=== PATIENT | male | born 1935 | race Caucasian/White ===

== ENCOUNTER 2016-10-07 12:37 | Emergency (ER) | payer OTHER, BC ==
[~2016-10-07] VITALS: Ht 170.2 cm; Wt 87.2 kg
[~2016-10-07 12:37] MED LIST: Ascorbic Acid,Ester- PO; CARDIZEM CD300 MG PO; CENTRUM SILVER1 EAC1 PO; COUMADIN1 MG PO; Cardizem CD,Cartia X PO; Coumadin Protocol PO; DIOVAN160 MG PO; DIOVAN80 MG PO; Dulcolax PO; FLOMAX0.4 MG PO; FLONASE16 G1 BOTH NARES; Feosol PO; Flonase BOTH NARES; Folvite PO; HYDROCHLOROTH12.5 M3 PO; Hydrodiuril,Oretic,E PO; IRON325 M1 PO; LIVALO4 MG PO; LO-DOSE ASPIRIN81 M1 PO; Lopressor PO; METOPROLOL TART25 MG PO; MONTELUKAST SOD10 MG PO; NORCO 5/3251 TABLET PO; OXYCODONE HCL5 MG PO; Pepcid PO; Pravachol PO; Senokot S,Pericolace PO; TYLENOL ARTHRI650 MG PO; TYLENOL REGULA325 MG PO; TYLENOL WITH C1 EACH PO; Theragran PO; Vicodin,Norco 5/325 PO; ZANTAC150 MG PO; ZOFRAN ODT4 MG PO; [UNRECOGNIZED DRUG - REMARK] PO
[2016-10-07 13:24] LABS: HEMATOCRIT 37.1 % (38.0-50.0); MCH 29.5 PG (29.0-34.0); MCHC 32.1 G/DL (30.0-36.0); MCV 92.1 FL (86-99); MEAN PLAT.VOLUME 11.5 uM^3 (9.0-12.4); PLATELET COUNT 205 K/uL (156-360); RBC DIS.WIDTH-CV 14.2 % (11.8-14.6); RBC DIS.WIDTH-SD 48.2 % (39-53); RED BLOOD COUNT 4.03 M/uL (4.00-5.50); WHITE BLOOD COUNT 6.8 K/uL (4.1-10.2)
[2016-10-07 13:34] LABS: CHLORIDE 111 mEq/L (99-109); POTASSIUM 4.7 mEq/L (3.7-5.4); SODIUM 145 mEq/L (136-147)
[2016-10-07 13:36] LABS: GLUCOSE 161 mg/dL (70-99)
[2016-10-07 13:37] LABS: ANION GAP 10 MEQ/L (2-14)
[2016-10-07 13:40] LABS: GFR ESTIMATE (CALCULATED) 52 mL/min/
[2016-10-07 13:41] LABS: UREA NITROGEN (BUN) 49 mg/dL (9-23)
[2016-10-07 13:44] LABS: TROP-I INTERPRETATION NEGATIVE; TROPONIN-I < 0.01 ng/mL (0.0-0.30)
[2016-10-07] MEDS ORDERED: ASPIR 8181 M1 PO (15:26)
[2016-10-07 16:29] LABS: TROP-I INTERPRETATION NEGATIVE; TROPONIN-I < 0.01 ng/mL (0.0-0.30)
[2016-10-07] MEDS ORDERED: PROVENTIL HFA6.7 GM IH (17:50)
[2016-10-07] MEDS ORDERED: ZYRTEC10 M2 PO (17:50)
[2016-10-07 18:05] VITALS: BP 148/57
== END 2016-10-07 18:11 | disposition home or self-care (01) ==
LOC: EME 12:37
PROVIDERS: Nurse Practitioner Family
DX: J20.9 Acute bronchitis, unspecified (principal); J30.2 Other seasonal allergic rhinitis; R07.89 Other chest pain; F43.9 Reaction to severe stress, unspecified; R42 Dizziness and giddiness; I10 Essential (primary) hypertension; Z95.1 Presence of aortocoronary bypass graft; Z79.82 Long term (current) use of aspirin
CPT/HCPCS: 71020; 80048; 84484; 85027; 93005; 94640; 99281; 99284

== ENCOUNTER 2016-10-28 11:28 | Day surgery (SDC) | payer OTHER, BC ==
[~2016-10-28] VITALS: Ht 170.2 cm; Wt 89.2 kg
[~2016-10-28 11:28] MED LIST changes: +ASPIR 8181 M1 PO; +PRAZOSIN HCL1 MG PO; +PROVENTIL HFA6.7 GM IH; +ZYRTEC10 M2 PO
[2016-10-28 20:30] VITALS: BP 167/81
[2016-10-28 23:55] VITALS: BP 171/94
[2016-10-29 04:05] VITALS: BP 146/77
[2016-10-29 07:46] VITALS: BP 170/91
[2016-10-29] MEDS ORDERED: LOPRESSOR25 MG PO (14:35)
== END 2016-10-29 15:51 | disposition home or self-care (01) ==
LOC: CATH 11:28 → 4EAST 13:40 → 2SOUTH 13:40 → 4EAST 20:08
DX: I44.2 Atrioventricular block, complete (principal); I45.10 Unspecified right bundle-branch block; I25.10 Atherosclerotic heart disease of native coronary artery without angina pectoris; I25.2 Old myocardial infarction; E78.5 Hyperlipidemia, unspecified; K21.9 Gastro-esophageal reflux disease without esophagitis; G47.33 Obstructive sleep apnea (adult) (pediatric); Z95.1 Presence of aortocoronary bypass graft; Z82.49 Family history of ischemic heart disease and other diseases of the circulatory system; Z88.0 Allergy status to penicillin; Z79.82 Long term (current) use of aspirin
CPT/HCPCS: 71010; 93005; 99202; C1785; C1892; C1894; C1898; G0378; J0360; J0690; J1200; J2250; J2405; J3010; S0020

== ENCOUNTER 2017-09-11 08:30 | Inpatient (IN) | payer OTHER, BC ==
[~2017-09-11] VITALS: Ht 170.2 cm; Wt 86.3 kg
[2017-09-11 02:03] VITALS: BP 132/68
[~2017-09-11 08:30] MED LIST changes: +LOPRESSOR25 MG PO; +MINIPRESS2 MG PO; -PRAZOSIN HCL1 MG PO
[2017-09-11 09:16] LABS: BASOPHIL (%) 0.1 % (0-1); EOSINOPHIL (%) 2.4 % (0-5); EOSINOPHIL COUNT 0.2 K/uL (0-0.3); HEMATOCRIT 34.2 % (38.0-50.0); HEMOGLOBIN 11.3 G/DL (12.5-16.6); IMMATURE GRANULOCYTE (%) 0.4 % (0.0-0.7); LYMPHOCYTE COUNT 0.7 K/uL (1.0-2.8); MCH 30.5 PG (29.0-34.0); MCV 92.2 FL (86-99); MONOCYTE (%) 8.2 % (3-12); MONOCYTE COUNT 0.6 K/uL (0-0.8); NEUTROPHIL (%) 79.9 % (45-76); NEUTROPHIL COUNT 5.8 K/uL (1.8-6.4); PLATELET COUNT 186 K/uL (156-360); RBC DIS.WIDTH-CV 14.3 % (11.8-14.6); RBC DIS.WIDTH-SD 48.6 % (39-53); RED BLOOD COUNT 3.71 M/uL (4.00-5.50); WHITE BLOOD COUNT 7.2 K/uL (4.1-10.2)
[2017-09-11 09:22] LABS: INTER. NORMALIZED RATIO 1.1
[2017-09-11 09:25] LABS: PTT 31.4 SEC (25-37)
[2017-09-11 09:46] LABS: CHLORIDE 112 MEQ/L (99-109); GFR ESTIMATE (CALCULATED) > 59 mL/min/ (58.99-99999); GLUCOSE 106 mg/dL (70-99); POTASSIUM 4.7 MEQ/L (3.7-5.4); SODIUM 141 MEQ/L (136-147); UREA NITROGEN (BUN) 22 mg/dL (9-23)
[2017-09-11 09:48] LABS: TROP-I INTERPRETATION NEGATIVE; TROPONIN-I 0.04 ng/mL (0.0-0.30)
[2017-09-11] MEDS ORDERED: CLARITIN-D 21 TABLET PO (10:47)
[2017-09-11 11:45] VITALS: BP 174/80
[2017-09-11 13:30] VITALS: BP 156/84
[2017-09-11 14:47] VITALS: BP 121/64
[2017-09-11 19:08] LABS: TROP-I INTERPRETATION NEGATIVE; TROPONIN-I 0.05 ng/mL (0.0-0.30)
[2017-09-11 20:35] VITALS: BP 132/68
[2017-09-11 22:30] VITALS: BP 143/75
[2017-09-12 03:00] VITALS: BP 125/65
[2017-09-12 05:36] LABS: MCHC 32.4 G/DL (30.0-36.0); MCV 89.7 FL (86-99); PLATELET COUNT 196 K/uL (156-360); RBC DIS.WIDTH-SD 45.6 % (39-53); RED BLOOD COUNT 3.79 M/uL (4.00-5.50); WHITE BLOOD COUNT 5.4 K/uL (4.1-10.2)
[2017-09-12 06:08] LABS: ALBUMIN 3.5 G/DL (3.2-4.8); ALKALINE PHOSPHATASE 59 IU/L (3-129); ALT (GPT) 7 IU/L (3-49); AST (GOT) 13 IU/L (2-34); CHLORIDE 105 MEQ/L (99-109); CREATININE 1.2 MG/DL (0.6-1.3); GFR ESTIMATE (CALCULATED) > 59 mL/min/ (58.99-99999); GLUCOSE 97 mg/dL (70-99); POTASSIUM 4.5 MEQ/L (3.7-5.4); SODIUM 140 MEQ/L (136-147); TOTAL BILIRUBIN 0.7 MG/DL (0.0-1.0); UREA NITROGEN (BUN) 26 mg/dL (9-23)
[2017-09-12 07:10] VITALS: BP 129/76
[2017-09-12 11:56] VITALS: BP 134/77
[2017-09-12 15:09] VITALS: BP 105/61
[2017-09-12 19:45] VITALS: BP 125/68; BP 151/67
[2017-09-12 23:50] VITALS: BP 112/67
[2017-09-13] VITALS (8 sets, daily range): BP systolic 76–151; BP diastolic 46–79
[2017-09-13 06:25] LABS: CHLORIDE 101 MEQ/L (99-109); CREATININE 1.4 MG/DL (0.6-1.3); GFR ESTIMATE (CALCULATED) 52 mL/min/ (58.99-99999); GLUCOSE 98 mg/dL (70-99); MAGNESIUM 1.8 mg/dl (1.3-2.7); POTASSIUM 4.1 MEQ/L (3.7-5.4); SODIUM 138 MEQ/L (136-147); UREA NITROGEN (BUN) 36 mg/dL (9-23)
[2017-09-14 04:51] VITALS: BP 131/75
[2017-09-14 05:45] LABS: BASOPHIL (%) 0.4 % (0-1); EOSINOPHIL (%) 4.6 % (0-5); EOSINOPHIL COUNT 0.3 K/uL (0-0.3); HEMATOCRIT 33.8 % (38.0-50.0); HEMOGLOBIN 11.2 G/DL (12.5-16.6); IMMATURE GRANULOCYTE (%) 0.1 % (0.0-0.7); LYMPHOCYTE (%) 13.8 % (15-42); MCH 29.8 PG (29.0-34.0); MCHC 33.1 G/DL (30.0-36.0); MCV 89.9 FL (86-99); MONOCYTE (%) 10.4 % (3-12); MONOCYTE COUNT 0.7 K/uL (0-0.8); NEUTROPHIL (%) 70.7 % (45-76); NEUTROPHIL COUNT 4.9 K/uL (1.8-6.4); PLATELET COUNT 190 K/uL (156-360); RBC DIS.WIDTH-CV 13.9 % (11.8-14.6); RBC DIS.WIDTH-SD 45.4 % (39-53); RED BLOOD COUNT 3.76 M/uL (4.00-5.50); WHITE BLOOD COUNT 6.9 K/uL (4.1-10.2)
[2017-09-14 06:04] LABS: CHLORIDE 104 MEQ/L (99-109); CREATININE 1.5 MG/DL (0.6-1.3); GFR ESTIMATE (CALCULATED) 48 mL/min/ (58.99-99999); GLUCOSE 95 mg/dL (70-99); POTASSIUM 4.5 MEQ/L (3.7-5.4); SODIUM 137 MEQ/L (136-147); UREA NITROGEN (BUN) 41 mg/dL (9-23)
[2017-09-14 08:07] VITALS: BP 102/68
[2017-09-14 11:18] VITALS: BP 118/72
[2017-09-14 14:40] VITALS: BP 122/62
[2017-09-14 20:42] VITALS: BP 146/70
[2017-09-15 00:05] VITALS: BP 136/66
[2017-09-15 05:44] VITALS: BP 106/65
[2017-09-15 05:55] LABS: CHLORIDE 104 MEQ/L (99-109); CREATININE 1.5 MG/DL (0.6-1.3); GFR ESTIMATE (CALCULATED) 48 mL/min/ (58.99-99999); GLUCOSE 97 mg/dL (70-99); POTASSIUM 4.5 MEQ/L (3.7-5.4); SODIUM 139 MEQ/L (136-147); UREA NITROGEN (BUN) 36 mg/dL (9-23)
[2017-09-15 08:09] VITALS: BP 132/81
[2017-09-15] MEDS ORDERED: FUROSEMIDE20 MG PO (10:51)
[2017-09-15] MEDS ORDERED: COZAAR25 MG PO (11:23)
== END 2017-09-15 13:13 | disposition home or self-care (01) | DRG 291 ==
LOC: EME 08:30 → EDOF 10:47 → 4EAST 10:47 → ENRESERV 10:49 → 4EAST 11:31
PROVIDERS: Emergency Medicine; Hospitalist; Internal Medicine; Physician Assistant Medical; Student in an Organized Health Care Education/Training Program
DX: I11.0 Hypertensive heart disease with heart failure (principal); I50.23 Acute on chronic systolic (congestive) heart failure; J96.01 Acute respiratory failure with hypoxia; I35.0 Nonrheumatic aortic (valve) stenosis; I95.9 Hypotension, unspecified; T50.1X5A Adverse effect of loop [high-ceiling] diuretics, initial encounter; E78.5 Hyperlipidemia, unspecified; I25.10 Atherosclerotic heart disease of native coronary artery without angina pectoris; I42.9 Cardiomyopathy, unspecified; G43.909 Migraine, unspecified, not intractable, without status migrainosus; G89.29 Other chronic pain; M54.5 Low back pain; K21.9 Gastro-esophageal reflux disease without esophagitis; Z96.652 Presence of left artificial knee joint; Z96.643 Presence of artificial hip joint, bilateral; Z79.82 Long term (current) use of aspirin; Z87.891 Personal history of nicotine dependence; Z95.5 Presence of coronary angioplasty implant and graft; Z95.1 Presence of aortocoronary bypass graft; Z95.0 Presence of cardiac pacemaker; Z85.46 Personal history of malignant neoplasm of prostate; I25.2 Old myocardial infarction; Z87.11 Personal history of peptic ulcer disease; Z88.0 Allergy status to penicillin; Z88.5 Allergy status to narcotic agent
CPT/HCPCS: 71045; 80048; 80053; 83735; 83880; 84484; 85025; 85027; 85610; 85730; 93005; 93306; 94799; 99202; 99281; 99285; J1644; J1940; J7040